=== PATIENT | male | born 1980 | race Caucasian/White ===

== ENCOUNTER 2016-05-31 15:56 | Emergency (ER) | payer BC ==
[~2016-05-31] VITALS: Ht 193 cm; Wt 194.3 kg
[~2016-05-31 15:56] MED LIST: MOTRIN800 MG PO; NEXIUM40 MG PO; PERCOCET 7.51 TABLET PO; SOMA350 MG PO; VICODIN 5-3001 EACH PO
[2016-05-31 17:24] LABS: MCH 28.1 PG (29.0-34.0); MEAN PLAT.VOLUME 12.5 uM^3 (9.0-12.4); PLATELET COUNT 93 K/uL (156-360); RBC DIS.WIDTH-CV 13.2 % (11.8-14.6); RBC DIS.WIDTH-SD 40.4 % (39-53); RED BLOOD COUNT 5.88 M/uL (4.00-5.50); WHITE BLOOD COUNT 10.1 K/uL (4.1-10.2)
[2016-05-31 17:42] LABS: CHLORIDE 104 mEq/L (99-109); POTASSIUM 4.1 mEq/L (3.7-5.4); SODIUM 140 mEq/L (136-147)
[2016-05-31 17:44] LABS: GLUCOSE 88 mg/dL (70-99)
[2016-05-31 17:46] LABS: ANION GAP 12 MEQ/L (2-14)
[2016-05-31 17:48] LABS: GFR ESTIMATE (CALCULATED) > 59 mL/min/
[2016-05-31 17:49] LABS: UREA NITROGEN (BUN) 17 mg/dL (9-23)
[2016-05-31 17:53] LABS: INTER. NORMALIZED RATIO 1.1; PROTHROMBIN TIME 10.7 (9.2-11.2)
[2016-05-31] MEDS ORDERED: XARELTO15 MG PO (18:25)
[2016-05-31 19:09] VITALS: BP 148/88
== END 2016-05-31 19:10 | disposition home or self-care (01) ==
LOC: EME 15:56
DX: I82.4Z2 Acute embolism and thrombosis of unspecified deep veins of left distal lower extremity (principal); Z86.718 Personal history of other venous thrombosis and embolism; Z87.891 Personal history of nicotine dependence
CPT/HCPCS: 80048; 85027; 85610; 99281; 99284